=== PATIENT | male | born 1945 | race Caucasian/White ===

== ENCOUNTER 2016-08-08 21:16 | Inpatient (IN) | payer MEDICARE, BC ==
[2016-08-08] MEDS ORDERED: Sodium Chloride 0.9% 10 ML Syringe FLUSH PRN (21:42)
[2016-08-08] MEDS ORDERED: Morphine 2 MG/ML Syringe IVPUSH ONE (21:52)
[2016-08-08] MEDS ORDERED: Ondansetron 4 MG/2 ML SDV IVPUSH ONE (21:52)
[2016-08-08] MEDS ORDERED: Sodium Chloride 0.9% 1,000 ML IV SCH (22:15)
[2016-08-08] MEDS ORDERED: HYDROmorphone 1 MG/ML Syringe IVPUSH ONE (23:22)
[2016-08-09] MEDS ORDERED: LORazepam 2 MG/ML MDV IVPUSH ONE (00:19)
--- NOTE | 2016-08-09 00:54 | EDM.PDOC ---
ED HPI GENERAL MEDICAL PROBLEM - General Chief Complaint: Cardiovascular Problem Stated Complaint: UPPER STOMACH PAIN/PRESSURE Time Seen by Provider: 08/08/16 21:46 Source of Information: Reports: Patient, Family - History of Present Illness INITIAL COMMENTS - FREE TEXT/NARRATIVE: abdominal pain; this is a 70 year old male present to ER with , complaints of abdominal starting this morning at 0900. felt like a sharp stabbing pain in right lower quadrant which came and went, then moved up to epigastric area, this evening having constant sharp stabbing pain in upper abdomen. Came to ER because could not tolerate the pain any more. last meal stir velasquez 3 hours prior to ER visit. last bm today, normal soft, denies constipation, bloody or black stools denies any nausea, vomiting or diarrhea denies any fever no other family members with similar symptoms reports hx of kidney stones, appendectomy, prostate cancer and bowel obstruction. Onset: Today Duration: Hour(s): Location: Reports: Abdomen Quality: Reports: Sharp, Stabbing Severity: Severe Improves with: Reports: None Worsens with: Reports: None Associated Symptoms: Reports: No Other Symptoms upper abdominal pain Pain Score (Numeric/FACES): 7 - Related Data Allergies Allergy/AdvReac Type Severity Reaction Status Date / Time No Known Allergies Allergy Verified 08/08/16 21:23 Home Meds: Home Meds Atenolol [Tenormin] 50 mg PO DAILY 11/01/14 [History] NIFEdipine [NIFEdipine ER] 90 mg PO DAILY 11/01/14 [History] atorvaSTATin [Lipitor] 40 mg PO BEDTIME 11/01/14 [History] Aspirin 325 mg PO DAILY 08/09/16 [History] Past Medical History HEENT History: Reports: Impaired Vision Cardiovascular History: Reports: Bypass Gastrointestinal History: Reports: Bowel Obstruction Genitourinary History: Reports: BPH Musculoskeletal History: Reports: Arthritis, Back Pain, Chronic Oncologic (Cancer) History: Reports: Prostate - Infectious Disease History Infectious Disease History: Reports: Chicken Pox, Measles, Mumps - Past Surgical History Cardiovascular Surgical History: Reports: Coronary Artery Bypass GI Surgical History: Reports: Appendectomy Male Surgical History: Reports: TURP-Transurethral Resection of Prostate Musculoskeletal Surgical History: Reports: Shoulder Surgery, Other (See Below) Other Musculoskeletal Surgeries/Procedures:: left shoulder rotator cuff Social & Family History - Tobacco Use Smoking Status *Q: Never Smoker - Caffeine Use Caffeine Use: Reports: Coffee - Alcohol Use Days Per Week of Alcohol Use: 7 Number of Drinks Per Day: 3 Total Drinks Per Week: 21 - Recreational Drug Use Recreational Drug Use: No ED ROS GENERAL - Review of Systems Review Of Systems: See Below Constitutional: Reports: Other (acute abdominal pain rates at 7 out of 10) HEENT: Reports: No Symptoms Respiratory: Reports: No Symptoms Cardiovascular: Reports: No Symptoms Endocrine: Reports: No Symptoms GI/Abdominal: Reports: Abdominal Pain, Distension : Reports: No Symptoms Musculoskeletal: Reports: No Symptoms Skin: Reports: No Symptoms Neurological: Reports: No Symptoms Psychiatric: Reports: Anxiety Hematologic/Lymphatic: Reports: No Symptoms Immunologic: Reports: No Symptoms ED EXAM, GENERAL - Physical Exam Exam: See Below Exam Limited By: No Limitations General Appearance: Alert, Anxious, Moderate Distress Eye Exam: Bilateral Eye: Normal Inspection Ears: Normal External Exam, Normal Canal, Hearing Grossly Normal, Normal TMs Ear Exam: Bilateral Ear: Auricle Normal, Canal Normal, TM normal Nose: Normal Inspection, Normal Mucosa, No Blood Throat/Mouth: Normal Inspection, Normal Lips, Normal Teeth, Normal Gums, Normal Oropharynx, Normal Voice, No Airway Compromise Head: Atraumatic, Normocephalic Neck: Normal Inspection, Supple, Non-Tender, Full Range of Motion Respiratory/Chest: No Respiratory Distress, Lungs Clear, Normal Breath Sounds, No Accessory Muscle Use, Chest Non-Tender Cardiovascular: Normal Peripheral Pulses, Regular Rate, Rhythm, No Edema, No Gallop, No Murmur GI/Abdominal: Distended (mild), Other (lower abdomen; hypoactive) (Male) Exam: Deferred Rectal (Males) Exam: Deferred Back Exam: Normal Inspection, Full Range of Motion Extremities: Normal Inspection, Normal Range of Motion, Non-Tender, No Pedal Edema, Normal Capillary Refill Neurological: Alert, Oriented, CN II-XII Intact, Normal Cognition, Normal Reflexes, No Motor/Sensory Deficits Psychiatric: Anxious (related abdominal pain , worried ) Skin Exam: Warm, Dry, Intact, Normal Color, No Rash Lymphatic: No Adenopathy Course - Vital Signs Last Recorded V/S: Last Vital Signs Temp 36.2 C 08/08/16 23:03 Pulse 70 08/09/16 00:04 Resp 17 08/09/16 00:04 BP 161/74 H 08/09/16 00:04 Pulse Ox 91 L 08/09/16 00:04 - Orders/Labs/Meds Orders: Active Orders 24 hr Category Date Time Status Cardiac Monitoring [RC] .As Directed Care 08/08/16 21:40 Active EKG Documentation Completion [RC] ASDIRECTED Care 08/08/16 21:41 Active Abdomen 1V Upright [CR] Stat Exams 08/08/16 21:41 Taken Abdomen Pelvis wo Cont [CT] Stat Exams 08/08/16 22:09 Taken Chest 1V Frontal [CR] Urgent Exams 08/08/16 21:40 Taken Sodium Chloride 0.9% [Normal Saline] 1,000 ml Med 08/08/16 22:15 Active IV ASDIRECTED Sodium Chloride 0.9% [Saline Flush] Med 08/08/16 21:42 Active 10 ml FLUSH ASDIRECTED PRN Saline Lock Insert [OM.PC] Routine Oth 08/08/16 21:42 Ordered Resuscitation Status Routine Resus Stat 08/09/16 00:30 Ordered EKG 12 Lead [EK] Urgent Ther 08/08/16 21:40 Ordered Medication Orders Sodium Chloride (Normal Saline) 1,000 mls @ 500 mls/hr IV ASDIRECTED LUKASZ Last Admin: 08/08/16 22:51 Dose: 500 mls/hr Sodium Chloride (Saline Flush) 10 ml FLUSH ASDIRECTED PRN PRN Reason: Keep Vein Open Last Admin: 08/08/16 22:24 Dose: 10 ml Labs: Laboratory Tests 08/08/16 08/08/16 08/08/16 Range/Units 21:55 21:55 21:55 WBC 8.9 (4.5-11.0) K/uL RBC 5.67 (4.30-5.90) M/uL Hgb 15.8 H (12.0-15.0) g/dL Hct 47.5 (40.0-54.0) % MCV 84 (80-98) fL MCH 28 (27-31) pg MCHC 33 (32-36) % Plt Count 145 L (150-400) K/uL Neut % (Auto) 64 (36-66) % Lymph % (Auto) 22 L (24-44) % [place] % (Auto) 11 H (2-6) % Eos % (Auto) 2 (2-4) % Baso % (Auto) 1 (0-1) % PT 12.0 (9.5-12.0) sec INR 1.13 (0.80-1.20) Sodium 136 L (140-148) mmol/L Potassium 3.4 L (3.6-5.2) mmol/L Chloride 100 (100-108) mmol/L Carbon Dioxide 25 (21-32) mmol/L Anion Gap 14.4 H (5.0-14.0) mmol/L BUN 12 (7-18) mg/dL Creatinine 0.9 (0.8-1.3) mg/dL Est Cr Clr Drug Dosing 77.46 mL/min Estimated GFR (MDRD) > 60 (>60) Glucose 163 H (74-106) mg/dL Calcium 8.8 (8.5-10.1) mg/dL Magnesium 2.0 (1.8-2.4) mg/dL Total Bilirubin 0.8 (0.2-1.0) mg/dL AST 58 H (15-37) U/L ALT 71 (12-78) U/L Alkaline Phosphatase 179 H (46-116) U/L Troponin I < 0.017 (0.000-0.056) ng/mL Total Protein 8.0 (6.4-8.2) g/dL Albumin 3.6 (3.4-5.0) g/dL Globulin 4.4 H (2.3-3.5) g/dL Albumin/Globulin Ratio 0.8 L (1.2-2.2) Amylase 22 L (25-115) U/L Lipase 176 (73-393) U/L TSH, Ultra Sensitive 7.442 H (0.358-3.740) uIU/mL Urine Color Urine Appearance Urine pH (4.5-8.0) Ur Specific [place] (1.008-1.030) Urine Protein (NEGATIVE) mg/dL Urine Glucose (UA) (NEGATIVE) mg/dL Urine Ketones (NEGATIVE) mg/dL Urine Occult Blood (NEGATIVE) Urine Nitrite (NEGAITVE) Urine Bilirubin (NEGATIVE) Urine Urobilinogen (NORMAL) mg/dL Ur Leukocyte Esterase (NEGATIVE) Urine RBC (0-5) Urine WBC (0-5) Ur Epithelial Cells Amorphous Sediment Urine Bacteria Urine Mucus 05/24/17 Range/Units 23:38 WBC (4.5-11.0) K/uL RBC (4.30-5.90) M/uL Hgb (12.0-15.0) g/dL Hct (40.0-54.0) % MCV (80-98) fL MCH (27-31) pg MCHC (32-36) % Plt Count (150-400) K/uL Neut % (Auto) (36-66) % Lymph % (Auto) (24-44) % [place] % (Auto) (2-6) % Eos % (Auto) (2-4) % Baso % (Auto) (0-1) % PT (9.5-12.0) sec INR (0.80-1.20) Sodium (140-148) mmol/L Potassium (3.6-5.2) mmol/L Chloride (100-108) mmol/L Carbon Dioxide (21-32) mmol/L Anion Gap (5.0-14.0) mmol/L BUN (7-18) mg/dL Creatinine (0.8-1.3) mg/dL Est Cr Clr Drug Dosing mL/min Estimated GFR (MDRD) (>60) Glucose (74-106) mg/dL Calcium (8.5-10.1) mg/dL Magnesium (1.8-2.4) mg/dL Total Bilirubin (0.2-1.0) mg/dL AST (15-37) U/L ALT (12-78) U/L Alkaline Phosphatase (46-116) U/L Troponin I (0.000-0.056) ng/mL Total Protein (6.4-8.2) g/dL Albumin (3.4-5.0) g/dL Globulin (2.3-3.5) g/dL Albumin/Globulin Ratio (1.2-2.2) Amylase (25-115) U/L Lipase (73-393) U/L TSH, Ultra Sensitive (0.358-3.740) uIU/mL Urine Color Yellow Urine Appearance Clear Urine pH 6.0 (4.5-8.0) Ur Specific [place] 1.015 (1.008-1.030) Urine Protein Negative (NEGATIVE) mg/dL Urine Glucose (UA) Normal (NEGATIVE) mg/dL Urine Ketones Negative (NEGATIVE) mg/dL Urine Occult Blood Negative (NEGATIVE) Urine Nitrite Negative (NEGAITVE) Urine Bilirubin Negative (NEGATIVE) Urine Urobilinogen Normal (NORMAL) mg/dL Ur Leukocyte Esterase Negative (NEGATIVE) Urine RBC Not seen (0-5) Urine WBC 0-5 (0-5) Ur Epithelial Cells Not seen Amorphous Sediment Not seen Urine Bacteria Not seen Urine Mucus Not seen Meds: Medications Generic Name Dose Route Start Last Admin Trade Name Uriah PRN Reason Stop Dose Admin Sodium Chloride 1,000 mls @ 500 mls/hr 08/08/16 22:15 08/08/16 22:51 Normal Saline IV 500 mls/hr ASDIRECTED LUKASZ Administration Sodium Chloride 10 ml 08/08/16 21:42 08/08/16 22:24 Saline Flush FLUSH 10 ml ASDIRECTED PRN Administration Keep Vein Open Discontinued Medications Generic Name Dose Route Start Last Admin Trade Name Uriah PRN Reason Stop Dose Admin Hydromorphone HCl 1 mg 08/08/16 23:22 08/08/16 23:45 Dilaudid IVPUSH 08/08/16 23:23 1 mg ONETIME ONE Administration Lorazepam 1 mg 08/09/16 00:19 08/09/16 00:44 Ativan IVPUSH 08/09/16 00:20 1 mg ONETIME ONE Administration Morphine Sulfate 2 mg 08/08/16 21:52 08/08/16 22:19 Morphine IVPUSH 08/08/16 21:53 2 mg ONETIME ONE Administration Ondansetron HCl 4 mg 08/08/16 21:52 08/08/16 22:18 Zofran IVPUSH 08/08/16 21:53 4 mg ONETIME ONE Administration - Radiology Interpretation Free Text/Narrative:: abdomen pelvis CT show 7cm ill-define mass vs fatty liver recommends liver ultrasound or MRI labs; TSH elevated IV fluids medicated for pain and anxiety Departure - Departure Time of Disposition: 01:06 Disposition: Admitted As Inpatient 67 Condition: good Clinical Impression: Abdominal pain Forms: ED Department Discharge - My Orders Last 24 Hours: My Active Orders 08/08/16 21:40 Cardiac Monitoring [RC] .As Directed Chest 1V Frontal [CR] Urgent EKG 12 Lead [EK] Urgent 08/08/16 21:41 EKG Documentation Completion [RC] ASDIRECTED Abdomen 1V Upright [CR] Stat 08/08/16 21:42 Sodium Chloride 0.9% [Saline Flush] 10 ml FLUSH ASDIRECTED PRN Saline Lock Insert [OM.PC] Routine 08/08/16 22:09 Abdomen Pelvis wo Cont [CT] Stat 08/08/16 22:15 Sodium Chloride 0.9% [Normal Saline] 1,000 ml IV ASDIRECTED 08/09/16 00:30 Resuscitation Status Routine - Assessment/Plan Last 24 Hours: My Active Orders 08/08/16 21:40 Cardiac Monitoring [RC] .As Directed Chest 1V Frontal [CR] Urgent EKG 12 Lead [EK] Urgent 08/08/16 21:41 EKG Documentation Completion [RC] ASDIRECTED Abdomen 1V Upright [CR] Stat 08/08/16 21:42 Sodium Chloride 0.9% [Saline Flush] 10 ml FLUSH ASDIRECTED PRN Saline Lock Insert [OM.PC] Routine 08/08/16 22:09 Abdomen Pelvis wo Cont [CT] Stat 08/08/16 22:15 Sodium Chloride 0.9% [Normal Saline] 1,000 ml IV ASDIRECTED 08/09/16 00:30 Resuscitation Status Routine
[2016-08-09] MEDS ORDERED: Ondansetron 4 MG/2 ML SDV IV PRN (01:38)
[2016-08-09] MEDS ORDERED: Albuterol 0.083% 2.5 MG/3 ML Neb Soln NEB PRN (01:38)
[2016-08-09] MEDS ORDERED: Pantoprazole 40 MG Vial IV SCH (01:38)
[2016-08-09] MEDS ORDERED: Zolpidem 5 MG Tab PO PRN (01:38)
[2016-08-09] MEDS ORDERED: Naloxone 0.4 MG/ML SDV IVPUSH PRN (01:38)
[2016-08-09] MEDS ORDERED: LORazepam 2 MG/ML MDV IV PRN (01:38)
--- NOTE | 2016-08-09 01:41 | PCM.HP ---
H&P History of Present Illness - General Date of Service: 08/08/16 Admit Problem/Dx: Admission Diagnosis/Problem Admission Diagnosis/Problem Abdominal pain Source of Information: Patient History Limitations: Reports: No Limitations - History of Present Illness Initial Comments - Free Text/Narative: INITIAL COMMENTS - FREE TEXT/NARRATIVE: abdominal pain; this is a 70 year old male present to ER with , complaints of abdominal starting this morning at 0900. felt like a sharp stabbing pain in right lower quadrant which came and went, then moved up to epigastric area, this evening having constant sharp stabbing pain in upper abdomen. Came to ER because could not tolerate the pain any more. last meal stir velasquez 3 hours prior to ER visit. last bm today, normal soft, denies constipation, bloody or black stools denies any nausea, vomiting or diarrhea denies any fever no other family members with similar symptoms reports hx of kidney stones, appendectomy, prostate cancer and bowel obstruction. CT abdomen pelvis; 7 cm mass vs fatty infiltrate of liver labs; WBC, HBG negative, Blood Glucose and TSH elevated Onset of Symptoms: Reports: Sudden Duration of Symptoms: Reports: Hour(s):, Constant Location: Reports: Abdomen Quality: Reports: Sharp, Stabbing Severity: Severe Improves with: Reports: None Worsens with: Reports: None Associated Symptoms: Reports: No Other Symptoms upper abdominal pain Pain Score (Numeric/FACES): 7 - Related Data Allergies/Adverse Reactions: Allergies Allergy/AdvReac Type Severity Reaction Status Date / Time No Known Allergies Allergy Verified 08/08/16 21:23 Home Medications: Home Meds Atenolol [Tenormin] 50 mg PO DAILY 11/01/14 [History] NIFEdipine [NIFEdipine ER] 90 mg PO DAILY 11/01/14 [History] atorvaSTATin [Lipitor] 40 mg PO BEDTIME 11/01/14 [History] Aspirin 325 mg PO DAILY 08/09/16 [History] Past Medical History HEENT History: Reports: Impaired Vision Cardiovascular History: Reports: Bypass Gastrointestinal History: Reports: Bowel Obstruction Genitourinary History: Reports: BPH Musculoskeletal History: Reports: Arthritis, Back Pain, Chronic Oncologic (Cancer) History: Reports: Prostate - Infectious Disease History Infectious Disease History: Reports: Chicken Pox, Measles, Mumps - Past Surgical History Cardiovascular Surgical History: Reports: Coronary Artery Bypass GI Surgical History: Reports: Appendectomy Male Surgical History: Reports: TURP-Transurethral Resection of Prostate Musculoskeletal Surgical History: Reports: Shoulder Surgery, Other (See Below) Other Musculoskeletal Surgeries/Procedures:: left shoulder rotator cuff Social & Family History - Tobacco Use Smoking Status *Q: Never Smoker - Caffeine Use Caffeine Use: Reports: Coffee - Alcohol Use Days Per Week of Alcohol Use: 7 Number of Drinks Per Day: 3 Total Drinks Per Week: 21 - Recreational Drug Use Recreational Drug Use: No H&P Review of Systems - Review of Systems: Review Of Systems: See Below General: Reports: Other (abdominal pain rates 7 out of 10) HEENT: Reports: No Symptoms Pulmonary: Reports: No Symptoms Cardiovascular: Reports: No Symptoms Gastrointestinal: Reports: Abdominal Pain, Distension Genitourinary: Reports: No Symptoms Musculoskeletal: Reports: Back Pain (chronic back pain) Skin: Reports: No Symptoms Psychiatric: Reports: No Symptoms Neurological: Reports: No Symptoms Hematologic/Lymphatic: Reports: No Symptoms Immunologic: Reports: No Symptoms Exam - Exam Exam: See Below - Vital Signs Vital Signs: Last Vital Signs Temp 36.5 C 08/09/16 01:33 Pulse 63 08/09/16 01:33 Resp 14 08/09/16 01:33 BP 158/77 H 08/09/16 01:33 Pulse Ox 97 08/09/16 01:33 Weight: 99.79 kg - Exam General: Alert, Oriented, Cooperative, Severe Distress HEENT: PERRLA, Conjunctiva Clear, EACs Clear, EOMI, Hearing Intact, Mucosa Moist & [place], Nares Patent, Normal Nasal Septum, Posterior Pharynx Clear, Pupils Equal, Pupils Reactive, TMs Clear Neck: Supple, Trachea Midline, 2 Lungs: Clear to Auscultation, Normal Respiratory Effort Cardiovascular: Regular Rate, Regular Rhythm Abdomen: Distention, Tenderness (generalized, increased epigastic area ) (Male) Exam: No Hernia Rectal (Males) Exam: Deferred Back Exam: Normal Inspection, Full Range of Motion, NT Extremities: 3, Normal Inspection, 10 Skin: Warm, Dry, Intact Neurological: Cranial Nerves Intact, Reflexes Equal Bilateral Neuro Extensive - Mental Status: Alert, Oriented x3, Normal Mood/Affect, Normal Cognition Neuro Extensive - Motor, Sensory, Reflexes: CN II-XII Intact, Normal Gait, Normal Reflexes Psychiatric: Alert, Normal Affect, Anxious - Patient Data Result Diagrams: 08/08/16 21:55 08/08/16 21:55 *Q Meaningful Use (ADM) - VTE *Q VTE Criteria *Q: - Stroke *Q Stroke Criteria *Q: - AMI *Q AMI Criteria *Q: - Problem List (1) Elevated TSH SNOMED Code(s): 242423432, 300965969 ICD Code: R94.6 - ABNORMAL RESULTS OF THYROID FUNCTION STUDIES Status: Acute Priority: Medium Current Visit: Yes (2) Abdominal pain SNOMED Code(s): 37113033 ICD Code: R10.9 - UNSPECIFIED ABDOMINAL PAIN Status: Acute Priority: High Current Visit: Yes Qualifiers: Abdominal location: epigastric Qualified Code(s): R10.13 - Epigastric pain (3) Cardiovascular disease Status: Acute Priority: High Current Visit: Yes Problem List Initiated/Reviewed/Updated: Yes Orders Last 24hrs: Active Orders 24 hr Category Date Time Status Communication Order [RC] STAT Care 08/09/16 01:38 Active Intake and Output [RC] QSHIFT Care 08/09/16 01:38 Active Notify Provider Vital Signs [RC] ASDIRECTED Care 08/09/16 01:38 Active Notify Provider [RC] PRN Care 08/09/16 01:38 Active Oxygen Therapy [RC] PRN Care 08/09/16 01:38 Active SUPERVISOR [employer] Record [RC] PER UNIT ROUTINE Care 08/09/16 01:38 Active Pulse Oximetry [RC] CONTINUOUS Care 08/09/16 01:38 Active RT Aerosol Therapy [RC] ASDIRECTED Care 08/09/16 01:38 Active Up ad Evelyn [RC] ASDIRECTED Care 08/09/16 01:38 Active VTE/DVT Education [RC] Per Unit Routine Care 08/09/16 01:38 Active Vital Signs [RC] Q4H Care 08/09/16 01:38 Active Nothing per Oral After Midnight Diet [DIET] Diet 08/09/16 Breakfast Active Abdomen w Cont [MR] Stat Exams 08/09/16 01:38 Ordered BASIC METABOLIC PANEL,BMP [CHEM] AM Lab 08/09/16 05:11 Ordered CBC WITH AUTO DIFF [HEME] AM Lab 08/09/16 05:11 Ordered GLUCOSE POC LAB TO COLLECT [POC] QIDACANDBED Lab 08/09/16 07:30 Ordered GLUCOSE POC LAB TO COLLECT [POC] QIDACANDBED Lab 08/09/16 11:30 Ordered GLUCOSE POC LAB TO COLLECT [POC] QIDACANDBED Lab 08/09/16 16:30 Ordered GLUCOSE POC LAB TO COLLECT [POC] QIDACANDBED Lab 08/09/16 21:00 Ordered Albuterol [Proventil Neb Soln] Med 08/09/16 01:38 Ordered 2.5 mg NEB Q4H PRN Atenolol [Tenormin] Med 08/09/16 09:00 Ordered 50 mg PO DAILY HYDROmorphone/Normal Saline [Dilaudid [employer]PERVIS[employer] 15 MG in NS Med 08/09/16 01:38 Ordered 30 ML] See Protocol IV ASDIRECTED PRN LORazepam [Ativan] Med 08/09/16 01:38 Ordered 1 mg IV Q6H PRN NIFEdipine [Procardia XL] Med 08/09/16 09:00 Ordered 90 mg PO DAILY Naloxone [Narcan] Med 08/09/16 01:38 Ordered 0.4 mg IVPUSH Q2M PRN Ondansetron [Zofran] Med 08/09/16 01:38 Ordered 4 mg IV Q4H PRN Pantoprazole [ProTONIX IV] Med 08/09/16 01:38 Ordered 40 mg IV DAILY Sodium Chloride 0.9% [Normal Saline] 1,000 ml Med 08/09/16 01:38 Ordered IV ASDIRECTED Zolpidem [Ambien] Med 08/09/16 01:38 Ordered 5 mg PO BEDTIME PRN atorvaSTATin [Lipitor] Med 08/09/16 21:00 Ordered 40 mg PO BEDTIME Medication Discontinuation Instructions [OM.PC] Stat Oth 08/09/16 01:38 Ordered Sequential Compression Device [OM.PC] Per Unit Routine Oth 08/09/16 01:38 Ordered Resuscitation Status Routine Resus Stat 08/09/16 00:30 Ordered Medication Orders Albuterol (Proventil Neb Soln) 2.5 mg NEB Q4H PRN PRN Reason: Shortness Of Breath/wheezing Atenolol (Tenormin) 50 mg PO DAILY LUKASZ Hydromorphone HCl (Dilaudid Square Shear Operator 15 Mg In Ns 30 Ml) 0 mg IV ASDIRECTED PRN; Protocol PRN Reason: Pain Sodium Chloride (Normal Saline) 1,000 mls @ 500 mls/hr IV ASDIRECTED LUKASZ Last Admin: 08/08/16 22:51 Dose: 500 mls/hr Sodium Chloride (Normal Saline) 1,000 mls @ 125 mls/hr IV ASDIRECTED LUKASZ Lorazepam (Ativan) 1 mg IV Q6H PRN PRN Reason: Nausea/Vomiting Naloxone HCl (Narcan) 0.4 mg IVPUSH Q2M PRN PRN Reason: Respiratory Distress Non-Formulary Medication (Nifedipine [Procardia Xl]) 90 mg PO DAILY LUKASZ Non-Formulary Medication (Atorvastatin [Lipitor]) 40 mg PO BEDTIME LUKASZ Ondansetron HCl (Zofran) 4 mg IV Q4H PRN PRN Reason: Nausea/Vomiting Pantoprazole Sodium (Protonix Iv) 40 mg IV DAILY LUKASZ Sodium Chloride (Saline Flush) 10 ml FLUSH ASDIRECTED PRN PRN Reason: Keep Vein Open Last Admin: 08/08/16 22:24 Dose: 10 ml Zolpidem Tartrate (Ambien) 5 mg PO BEDTIME PRN PRN Reason: Sleep Assessment/Plan Comment:: ASSESSMENT AND PLAN abdominal pain; this is a 70 year old male present to ER with , complaints of abdominal starting this morning at 0900. felt like a sharp stabbing pain in right lower quadrant which came and went, then moved up to epigastric area, this evening having constant sharp stabbing pain in upper abdomen. Came to ER because could not tolerate the pain any more. last meal stir velasquez 3 hours prior to ER visit. last bm today, normal soft, denies constipation, bloody or black stools denies any nausea, vomiting or diarrhea denies any fever no other family members with similar symptoms reports hx of kidney stones, appendectomy, prostate cancer and bowel obstruction. CT abdomen pelvis; 7 cm mass vs fatty infiltrate of liver labs; WBC, HBG negative, Blood Glucose and TSH elevated Plan -Admit to [address] [place] [address] for further monitoring -IV fluids for rehydration NS at 125 mL per hour -Dilaudid SUPERVISOR [employer] for pain control -Advise to notify nurses of any abdominal pain or other symptoms -Order for MRI abdomen in a.m. to further evaluate liver mass vs fatty liver -And a.m. labs: CBC, BMP Maintenance issues -Orders home meds: order to be given -Nutrition: NPO til MRI then regular -Sesay catheter not indicated at this time -DVT: SCD CODE STATUS: Full Admission status: Admit to [address] [place] [address] Admission justification. This patient will be admitted for inpatient services and is medically appropriate meeting medical necessity for inpatient admission as outlined in my documentation. I reasonably expect the patient will require inpatient services that span. Time over 2 midnights. I reasonably expect this patient to be discharged or transferred within 96 hours after admission to the [facility]. Disposition;home Primary care provider:
[2016-08-09] MEDS: HYDROmorphone/Normal Saline 15 MG/30 ML PCA IV PRN (02:05)
[2016-08-09] MEDS: Sodium Chloride 0.9% 1,000 ML IV SCH ×3 (02:17→21:20)
[2016-08-09] MEDS: NIFEdipine 30 MG Tab.ER PO SCH (08:33)
[2016-08-09] MEDS: Atenolol 50 MG Tab PO SCH (08:33)
--- NOTE | 2016-08-09 09:06 | CR ---
No dilated loops of large or small bowel.
--- NOTE | 2016-08-09 09:12 | CR ---
Mild cardiomegaly. Sternotomy. No focal consolidation. Pulmonary vasculature within normal limits.
[2016-08-09] MEDS ORDERED: Gadoteridol 279.3 MG/ML 20 ML SDV IV SCH (12:00)
--- NOTE | 2016-08-09 13:16 | MR ---
MR abdomen with and without contrast Indication: Fatty infiltration versus mass. Findings: There is a large mass again noted superior to the gallbladder predominantly within the med ial segment left lobe of the liver. Some involvement within the inferior aspect of the lateral segme nt of the left lobe of the liver just lateral to the falciform ligament is possible. Mass measures 5 .5 cm AP x 7.5 cm transverse. It demonstrates mild hyperintensity on T2 images. It has low T1 signal . On arterial phase it demonstrates peripheral enhancement. There does appear to be filling of the m ass but does appear incomplete especially inferiorly. The liver capsule is contracted in this locati on of the mass. There are multiple high T2 signal foci throughout the liver. Some are too small to c haracterize. Many do not enhance and are consistent with cysts. Adrenal glands are within normal [place] its. Renal cysts are evident. Pancreas where visualized is within normal limits. Within the superior aspect of the gallbladder there is a 6 mm nodular density which may indicate a polyp or stone. Herbert mmend ultrasound follow-up to better visualize. It is not well-visualized on contrast enhanced image s. Impression: 1. High T2 signal mass with peripheral contrast enhancement and liver capsular contraction. Findings are indeterminant. Findings may indicate a primary neoplasm, metastatic disease or giant hemangioma . 2. Nodule within the superior aspect of the gallbladder is incompletely visualized. This could poten tially indicate a stone or polyp. Artifact may contribute. Recommend ultrasound follow-up.
--- NOTE | 2016-08-09 13:49 | PCM.PN ---
- General Info Date of Service: 08/09/16 Functional Status: Reports: pain controlled, urinating - Review of Systems General: Denies: Fever Gastrointestinal: Reports: Abdominal pain. Denies: Diarrhea, Nausea Systems Review Comment:: No acute events since admission. Pain has been helped by the IV hydromorphone but he still has a fair amount of epigastric and right upper quadrant pain. Pain is worse when he is moving and holding his breath. No nausea or vomiting. No diarrhea. He has not had any fevers. MRI of the abdomen revealed a sclerotic appearing mass in the liver with differential including partially sclerosed hemangioma versus hepatocellular carcinoma versus cholangiocarcinoma. He also has mild pericholecystic fluid. Possible gallstone also noted. - Patient Data Vitals - most recent: Last Vital Signs Temp 36.1 C 08/09/16 10:57 Pulse 62 08/09/16 10:57 Resp 16 08/09/16 10:57 BP 147/73 H 08/09/16 10:57 Pulse Ox 93 L 08/09/16 12:58 Weight - most recent: 98.747 kg I&O - last 24 hours: Intake & Output 08/08/16 08/09/16 08/09/16 22:59 06:59 14:59 Intake Total 522 Balance 522 Lab Results last 24 hrs: Laboratory Results - last 24 hr 08/09/16 08/09/16 Range/Units 05:11 05:11 WBC 7.7 (4.5-11.0) K/uL RBC 5.20 (4.30-5.90) M/uL Hgb 14.6 (12.0-15.0) g/dL Hct 44.1 (40.0-54.0) % MCV 85 (80-98) fL MCH 28 (27-31) pg MCHC 33 (32-36) % Plt Count 119 L (150-400) K/uL Neut % (Auto) 63 (36-66) % Lymph % (Auto) 22 L (24-44) % [place] % (Auto) 12 H (2-6) % Eos % (Auto) 3 (2-4) % Baso % (Auto) 1 (0-1) % Sodium 139 L (140-148) mmol/L Potassium 3.9 (3.6-5.2) mmol/L Chloride 104 (100-108) mmol/L Carbon Dioxide 27 (21-32) mmol/L Anion Gap 11.9 (5.0-14.0) mmol/L BUN 9 (7-18) mg/dL Creatinine 0.8 (0.8-1.3) mg/dL Est Cr Clr Drug Dosing 87.15 mL/min Estimated GFR (MDRD) > 60 (>60) Glucose 123 H (74-106) mg/dL Calcium 8.0 L (8.5-10.1) mg/dL Med Orders - Current: Current Medications Albuterol (Proventil Neb Soln) 2.5 mg NEB Q4H PRN PRN Reason: Shortness Of Breath/wheezing Atenolol (Tenormin) 50 mg PO DAILY [facility] Last Admin: 08/09/16 08:33 Dose: 50 mg Atorvastatin Calcium (Lipitor) 40 mg PO BEDTIME [facility] Hydromorphone HCl (Dilaudid Electric Switch Tester 15 Mg In Ns 30 Ml) 0 mg IV ASDIRECTED PRN; Protocol PRN Reason: Pain Last Admin: 08/09/16 02:05 Dose: 15 mg Sodium Chloride (Normal Saline) 1,000 mls @ 75 mls/hr IV ASDIRECTED [facility] Lorazepam (Ativan) 1 mg IV Q6H PRN PRN Reason: Nausea/Vomiting Naloxone HCl (Narcan) 0.4 mg IVPUSH Q2M PRN PRN Reason: Respiratory Distress Nifedipine (Procardia Xl) 90 mg PO DAILY [facility] Last Admin: 08/09/16 08:33 Dose: 90 mg Ondansetron HCl (Zofran) 4 mg IV Q4H PRN PRN Reason: Nausea/Vomiting Pantoprazole Sodium (Protonix Iv) 40 mg IV DAILY@1630 [facility] Sodium Chloride (Saline Flush) 10 ml FLUSH ASDIRECTED PRN PRN Reason: Keep Vein Open Last Admin: 08/08/16 22:24 Dose: 10 ml Zolpidem Tartrate (Ambien) 5 mg PO BEDTIME PRN PRN Reason: Sleep Discontinued Medications Gadoteridol (Prohance) 20 ml IV . DIRECTED [facility] Stop: 08/09/16 12:01 Last Admin: 08/09/16 12:07 Dose: 20 ml Hydromorphone HCl (Dilaudid) 1 mg IVPUSH ONETIME ONE Stop: 08/08/16 23:23 Last Admin: 08/08/16 23:45 Dose: 1 mg Sodium Chloride (Normal Saline) 1,000 mls @ 500 mls/hr IV ASDIRECTED [facility] Last Admin: 08/08/16 22:51 Dose: 500 mls/hr Sodium Chloride (Normal Saline) 1,000 mls @ 125 mls/hr IV ASDIRECTED [facility] Last Admin: 08/09/16 09:30 Dose: 125 mls/hr Lorazepam (Ativan) 1 mg IVPUSH ONETIME ONE Stop: 08/09/16 00:20 Last Admin: 08/09/16 00:44 Dose: 1 mg Morphine Sulfate (Morphine) 2 mg IVPUSH ONETIME ONE Stop: 08/08/16 21:53 Last Admin: 08/08/16 22:19 Dose: 2 mg Ondansetron HCl (Zofran) 4 mg IVPUSH ONETIME ONE Stop: 08/08/16 21:53 Last Admin: 08/08/16 22:18 Dose: 4 mg Pantoprazole Sodium (Protonix Iv) 40 mg IV DAILY [facility] Last Admin: 08/09/16 02:17 Dose: 40 mg - Exam Quality Assessment: No: supplemental oxygen General: alert, oriented, cooperative, no acute distress Neck: supple Lungs: Normal respiratory effort Cardiovascular: Regular Rate, Regular Rhythm Abdomen: bowel sounds present, soft, no distension, tenderness (moderate RUQ and epigastric pain). No: rebound, guarding Extremities: no edema, no cyanosis Skin: warm, dry Psy/Mental Status: alert, normal affect - Problem List Review Problem List Initiated/Reviewed/Updated: Yes - My Orders Last 24 Hours: My Active Orders 08/09/16 13:45 Sodium Chloride 0.9% [Normal Saline] 1,000 ml IV ASDIRECTED 08/09/16 Dinner Full Liquid Diet [DIET] 08/10/16 05:00 CBC W/O DIFF,HEMOGRAM [HEME] Timed (1) COMPREHENSIVE METABOLIC PN,CMP [CHEM] Timed T4 FREE [CHEM] Timed 08/10/16 07:00 Cholescintigraphy w Pharm Int [NM] Routine 08/10/16 Breakfast NPO After Midnight [Nothing per Oral After Midnight Diet] [DIET] - Plan Plan:: ASSESSMENT AND PLAN Epigastric and RUQ pain - at this point I am most suspicious for a cholecystitis type picture with his pain description and location. Mild pericholecystic fluid noted on the MRI. He has not currently febrile and has not had fevers since admission. Anatomically the gallbladder does not look sick but I believe he would benefit from functional testing with a HIDA scan. I doubt that the liver mass as discussed below is responsible for the acute pain. -Full liquids tonight -Pain control -N.p.o. after midnight -HIDA scan in the morning -Consider surgical consultation if HIDA is abnormal Liver mass - 7 cm partially sclerosed mass noted in the liver near the gallbladder. Differential includes meningioma versus carcinoma. The radiologist recommended biopsy for further evaluation. Patient will need a biopsy at some point, if he has a cholecystectomy this could be an efficient time to collect the sample versus interventional radiology as an outpatient. He does not currently have B. symptoms such as weight loss, night sweats or fatigue. Coronary artery disease - no active symptoms at this time. Troponin level was normal. Vital signs have been stable. -Continue medical management Maintenance issues -Nutrition: full liquids tonight and NPO after midnight -GI: PPI -DVT: SCD Disposition; anticipate d/c home after the hospital stay Burke Cho MD
[2016-08-09] MEDS: Pantoprazole 40 MG Vial IV SCH (16:17)
[2016-08-09] MEDS: atorvaSTATin 20 MG Tab PO SCH (21:20)
[2016-08-10] MEDS: Atenolol 50 MG Tab PO SCH (11:19)
[2016-08-10] MEDS: NIFEdipine 30 MG Tab.ER PO SCH (11:20)
--- NOTE | 2016-08-10 11:34 | NM ---
HIDA scan. Technique: 5.18 mCi technetium Choletec administered. 1.97 mcg CCK administered. Findings: Prompt liver uptake. Gallbladder uptake at 10 minutes. Gallbladder ejection fraction 24.7% . Normal is 35% or greater. Impression: 1. Low gallbladder ejection fraction which can be seen in chronic cholecystitis or biliary dysfuncti on.
--- NOTE | 2016-08-10 14:42 | PCM.PN ---
- General Info Date of Service: 08/10/16 Functional Status: Reports: pain controlled, ambulating, urinating - Review of Systems General: Denies: Fever, Weakness, Fatigue, Chills HEENT: Reports: no symptoms Pulmonary: Reports: no symptoms Cardiovascular: Reports: No Symptoms Gastrointestinal: Reports: Abdominal pain, Nausea. Denies: Difficulty swallowing, Vomiting Systems Review Comment:: This patient is a 70-year-old gentleman who was admitted for further evaluation of epigastric and right upper quadrant abdominal pain. CT scan was obtained and showed evidence of liver abnormality. MRI was obtained and shows evidence of a liver mass which is indeterminate, possible malignancy versus large hemangioma. CCK stimulated HIDA Scan showed a decreased ejection fraction of 25 %, CCK stimulation did not necessarily reproduce his symptoms. He has felt mildly to moderately improved since admission, and has been able to tolerate a full liquid diet. - Patient Data Vitals - most recent: Last Vital Signs Temp 97 F 08/10/16 14:32 Pulse 59 L 08/10/16 14:32 Resp 17 08/10/16 14:32 BP 160/82 H 08/10/16 14:32 Pulse Ox 95 08/10/16 14:32 Weight - most recent: 217 lb 11.198 oz I&O - last 24 hours: Intake & Output 08/09/16 08/10/16 08/10/16 22:59 06:59 14:59 Intake Total 3109 752 1080 Output Total 600 1300 750 Balance 2509 -548 330 Lab Results last 24 hrs: Laboratory Results - last 24 hr 08/10/16 08/10/16 Range/Units 05:00 05:00 WBC 7.4 (4.5-11.0) K/uL RBC 5.33 (4.30-5.90) M/uL Hgb 14.8 (12.0-15.0) g/dL Hct 45.3 (40.0-54.0) % MCV 85 (80-98) fL MCH 28 (27-31) pg MCHC 33 (32-36) % Plt Count 107 L (150-400) K/uL Sodium 139 L (140-148) mmol/L Potassium 4.0 (3.6-5.2) mmol/L Chloride 105 (100-108) mmol/L Carbon Dioxide 26 (21-32) mmol/L Anion Gap 12.0 (5.0-14.0) mmol/L BUN 8 (7-18) mg/dL Creatinine 0.8 (0.8-1.3) mg/dL Est Cr Clr Drug Dosing 86.86 mL/min Estimated GFR (MDRD) > 60 (>60) Glucose 122 H (74-106) mg/dL Calcium 8.2 L (8.5-10.1) mg/dL Total Bilirubin 1.1 H (0.2-1.0) mg/dL AST 46 H (15-37) U/L ALT 49 (12-78) U/L Alkaline Phosphatase 129 H (46-116) U/L Total Protein 6.6 (6.4-8.2) g/dL Albumin 2.9 L (3.4-5.0) g/dL Globulin 3.7 H (2.3-3.5) g/dL Albumin/Globulin Ratio 0.8 L (1.2-2.2) Free T4 1.10 (0.76-1.46) ng/dL Med Orders - Current: Current Medications Albuterol (Proventil Neb Soln) 2.5 mg NEB Q4H PRN PRN Reason: Shortness Of Breath/wheezing Atenolol (Tenormin) 50 mg PO DAILY [facility] Last Admin: 08/10/16 11:19 Dose: 50 mg Atorvastatin Calcium (Lipitor) 40 mg PO BEDTIME [facility] Last Admin: 08/09/16 21:20 Dose: 40 mg Hydromorphone HCl (Dilaudid Support Group Manager 15 Mg In Ns 30 Ml) 0 mg IV ASDIRECTED PRN; Protocol PRN Reason: Pain Last Admin: 08/09/16 02:05 Dose: 15 mg Sodium Chloride (Normal Saline) 1,000 mls @ 75 mls/hr IV ASDIRECTED [facility] Last Admin: 08/09/16 21:20 Dose: 75 mls/hr Lorazepam (Ativan) 1 mg IV Q6H PRN PRN Reason: Nausea/Vomiting Naloxone HCl (Narcan) 0.4 mg IVPUSH Q2M PRN PRN Reason: Respiratory Distress Nifedipine (Procardia Xl) 90 mg PO DAILY [facility] Last Admin: 08/10/16 11:20 Dose: 90 mg Non-Formulary Medication (Aspirin [Aspirin]) 325 mg PO DAILY [facility] Ondansetron HCl (Zofran) 4 mg IV Q4H PRN PRN Reason: Nausea/Vomiting Pantoprazole Sodium (Protonix Iv) 40 mg IV DAILY@1630 [facility] Last Admin: 08/09/16 16:17 Dose: 40 mg Sodium Chloride (Saline Flush) 10 ml FLUSH ASDIRECTED PRN PRN Reason: Keep Vein Open Last Admin: 08/08/16 22:24 Dose: 10 ml Zolpidem Tartrate (Ambien) 5 mg PO BEDTIME PRN PRN Reason: Sleep Discontinued Medications Gadoteridol (Prohance) 20 ml IV . DIRECTED [facility] Stop: 08/09/16 12:01 Last Admin: 08/09/16 12:07 Dose: 20 ml Hydromorphone HCl (Dilaudid) 1 mg IVPUSH ONETIME ONE Stop: 08/08/16 23:23 Last Admin: 08/08/16 23:45 Dose: 1 mg Sodium Chloride (Normal Saline) 1,000 mls @ 500 mls/hr IV ASDIRECTED [facility] Last Admin: 08/08/16 22:51 Dose: 500 mls/hr Sodium Chloride (Normal Saline) 1,000 mls @ 125 mls/hr IV ASDIRECTED [facility] Last Admin: 08/09/16 09:30 Dose: 125 mls/hr Lorazepam (Ativan) 1 mg IVPUSH ONETIME ONE Stop: 08/09/16 00:20 Last Admin: 08/09/16 00:44 Dose: 1 mg Morphine Sulfate (Morphine) 2 mg IVPUSH ONETIME ONE Stop: 08/08/16 21:53 Last Admin: 08/08/16 22:19 Dose: 2 mg Ondansetron HCl (Zofran) 4 mg IVPUSH ONETIME ONE Stop: 08/08/16 21:53 Last Admin: 08/08/16 22:18 Dose: 4 mg Pantoprazole Sodium (Protonix Iv) 40 mg IV DAILY [facility] Last Admin: 08/09/16 02:17 Dose: 40 mg - Exam Quality Assessment: DVT prophylaxis General: alert, oriented, cooperative, mild distress Lungs: Clear to auscultation, Normal respiratory effort Cardiovascular: Regular Rate, Regular Rhythm, No Murmurs Abdomen: bowel sounds present, soft, no tenderness, no distension, tenderness. No: rigidity, rebound, guarding Extremities: no edema Skin: warm, dry, intact - Problem List Review Problem List Initiated/Reviewed/Updated: Yes - My Orders Last 24 Hours: My Active Orders 08/10/16 14:34 Consult to Physician [CONS] Routine 08/10/16 14:35 Notify Provider Consults [RC] ASDIRECTED 08/10/16 Lunch Full Liquid Diet [DIET] 08/11/16 05:00 CBC WITH AUTO DIFF [HEME] Timed COMPREHENSIVE METABOLIC PN,CMP [CHEM] Timed 08/11/16 09:00 Aspirin [Aspirin] 325 mg PO DAILY 08/11/16 Breakfast NPO After Midnight [Nothing per Oral After Midnight Diet] [DIET] - Plan Plan:: ASSESSMENT AND PLAN Epigastric and RUQ pain - HIDA scan was abnormal with a decreased ejection fraction, symptoms were not reproduced with CCK infusion. -Full liquids tonight -Pain control -N.p.o. after midnight -Consult Dr. Ragland for surgical opinion, probable laparoscopic cholecystectomy and liver biopsy Liver mass - 7 cm partially sclerosed mass noted in the liver near the gallbladder. Differential includes hemangioma versus malignancy. -Consult Dr. Ragland as above for possible biopsy Coronary artery disease - no active symptoms at this time. Troponin level was normal. Vital signs have been stable. -Continue medical management Maintenance issues -Nutrition: full liquids tonight and NPO after midnight -GI: PPI -DVT: SCD Disposition; anticipate d/c home after the hospital stay
[2016-08-10] MEDS: Pantoprazole 40 MG Vial IV SCH (16:41)
[2016-08-10] MEDS: atorvaSTATin 20 MG Tab PO SCH (20:21)
[2016-08-10] MEDS: Sodium Chloride 0.9% 1,000 ML IV SCH (23:50)
[2016-08-11] MEDS ORDERED: Ondansetron 4 MG/2 ML SDV ONE (07:14)
[2016-08-11] MEDS ORDERED: Midazolam 1 MG/ML 2 ML SDV ONE (07:14)
[2016-08-11] MEDS ORDERED: fentaNYL 250 MCG/5 ML SDV ONE (07:14)
[2016-08-11] MEDS ORDERED: Rocuronium 50 MG/5 ML Vial ONE (07:14)
[2016-08-11] MEDS ORDERED: Propofol 200 MG/20 ML SDV ONE (07:14)
[2016-08-11] MEDS ORDERED: Neostigmine Methylsulfate 1 MG/ML 5 ML Syringe ONE (07:14)
[2016-08-11] MEDS ORDERED: Dexamethasone 4 MG/ML SDV ONE (07:14)
[2016-08-11] MEDS: Atenolol 50 MG Tab PO SCH ×2 (07:27→08:06)
[2016-08-11] MEDS: NIFEdipine 30 MG Tab.ER PO SCH ×2 (07:27→08:06)
[2016-08-11] MEDS: Dextrose 5%-Lactated Ringers 1,000 ML IV SCH ×2 (08:06→21:13)
[2016-08-11] MEDS ORDERED: Bupivacaine 0.5%/EPINEPHrine 1:200,000 50 ML MDV ONE (08:38)
[2016-08-11] MEDS ORDERED: Non-Formulary Medication 1 Each (Aspirin [Aspirin] 325 MG) PO SCH (09:00)
[2016-08-11] MEDS ORDERED: cefOXitin 2 GM in Sodium Chloride 0.9% 50 ML IV ONE (09:00)
[2016-08-11] MEDS ORDERED: Lactated Ringers 1,000 ML ONE (10:18)
[2016-08-11] MEDS: Aspirin 325 MG Tab.EC PO SCH (10:28)
[2016-08-11] MEDS ORDERED: Naloxone 0.4 MG/ML SDV ONE (10:47)
[2016-08-11] MEDS ORDERED: Meperidine PF 100 MG/ML Syringe ONE (11:04)
[2016-08-11] MEDS ORDERED: Meperidine PF 100 MG/ML Syringe IM ONE (11:15)
[2016-08-11] MEDS ORDERED: hydrOXYzine HCl 50 MG/ML SDV IM ONE (11:15)
[2016-08-11] MEDS ORDERED: Acetaminophen/oxyCODONE 325-5 MG Tab PO PRN (12:13)
[2016-08-11] MEDS: cefOXitin 2 GM in Sodium Chloride 0.9% 50 ML IV SCH ×2 (14:43→21:36)
[2016-08-11] MEDS ORDERED: fentaNYL 25 MCG/HR Transdermal Patch TRDERM SCH (16:00)
[2016-08-11] MEDS: Cyclobenzaprine 10 MG Tab PO PRN (16:05)
[2016-08-11] MEDS: Pantoprazole 40 MG Vial IV SCH (16:11)
[2016-08-11] MEDS: HYDROmorphone/Normal Saline 15 MG/30 ML PCA IV PRN (17:19)
[2016-08-11] MEDS: atorvaSTATin 20 MG Tab PO SCH (22:41)
[2016-08-12] MEDS: cefOXitin 2 GM in Sodium Chloride 0.9% 50 ML IV SCH ×4 (03:06→21:18)
[2016-08-12] MEDS: NIFEdipine 30 MG Tab.ER PO SCH (09:06)
[2016-08-12] MEDS: Atenolol 50 MG Tab PO SCH (09:07)
[2016-08-12] MEDS: Aspirin 325 MG Tab.EC PO SCH (09:07)
[2016-08-12] MEDS: oxyCODONE 5 MG Tab PO PRN ×4 (09:12→21:18)
[2016-08-12] MEDS: Pantoprazole 40 MG Vial IV SCH (15:59)
[2016-08-12] MEDS: Dextrose 5%-Lactated Ringers 1,000 ML IV SCH (15:59)
[2016-08-12] MEDS: atorvaSTATin 20 MG Tab PO SCH (21:18)
[2016-08-13] MEDS: oxyCODONE 5 MG Tab PO PRN ×5 (01:11→19:53)
[2016-08-13] MEDS: Dextrose 5%-Lactated Ringers 1,000 ML IV SCH ×3 (02:32→15:15)
[2016-08-13] MEDS: cefOXitin 2 GM in Sodium Chloride 0.9% 50 ML IV SCH ×3 (02:35→15:10)
[2016-08-13] MEDS: NIFEdipine 30 MG Tab.ER PO SCH (08:25)
[2016-08-13] MEDS: Aspirin 325 MG Tab.EC PO SCH (08:25)
[2016-08-13] MEDS: Atenolol 50 MG Tab PO SCH (08:25)
[2016-08-13] MEDS ORDERED: Magnesium Hydroxide 400 MG/5 ML Susp 30 ML Cup PO ONE (09:00)
--- NOTE | 2016-08-13 09:20 | PN ---
DATE OF SERVICE: 08/13/2016 SUBJECTIVE: Adonis is postop day #2. He has not had a bowel movement since 08/07/2016. His pain is controlled. INEZ drain did put out 250 of a light pink drainage. He has been up ambulating. He has no other questions or concerns today. OBJECTIVE: GENERAL: Adonis Martin is a 70-year-old male. He is alert and orientated. VITAL SIGNS: TPR is 98.8, 56, 16, blood pressure 143/75. HEENT: Negative. NECK: Supple. HEART: Regular rate and rhythm. LUNGS: Clear. ABDOMEN: Dressings dry and intact. INEZ drain is draining as above. EXTREMITIES: SCDs are on, and there is no peripheral edema. 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 Date of surgery, 08/11/2016. PLAN: 1. Milk of magnesia 30 mL one time. 2. Dulcolax 10 mg 2 tabs 1 hour after milk of magnesia. 3. Dressing off. 4. May shower. 5. Plan discharge after bowel movement. Communication note was given to clinic nurses to set up Oncology consult as soon as possible. 6. We will evaluate p.r.n. or in a.m. Tati Adan PA-C /[id number]
[2016-08-13] MEDS ORDERED: Bisacodyl 5 MG Tab PO ONE (10:00)
[2016-08-13] MEDS: Cyclobenzaprine 10 MG Tab PO PRN ×2 (11:19→19:53)
[2016-08-13] MEDS ORDERED: Bisacodyl 10 MG Supp RECTAL ONE ×2 (16:00→21:00)
[2016-08-13] MEDS ORDERED: Pantoprazole 40 MG Tab.CR PO SCH (16:30)
[2016-08-13] MEDS ORDERED: Bisacodyl 10 MG Supp RECTAL SCH (21:00)
[2016-08-13] MEDS: atorvaSTATin 20 MG Tab PO SCH (21:12)
[2016-08-14] MEDS: oxyCODONE 5 MG Tab PO PRN ×2 (01:54→07:05)
[2016-08-14 07:17] VITALS: BP 160/75
[2016-08-14] MEDS ORDERED: Magnesium Hydroxide 400 MG/5 ML Susp 30 ML Cup PO ONE (08:12)
--- NOTE | 2016-08-14 09:04 | PN ---
DATE OF SERVICE: 08/12/2016 The patient has been afebrile with stable vital signs. Pain control initially out of the operating room was marginal. We did add a fentanyl patch and this seems to be controlling the pain quite a bit better. We will try switching over to oral oxycodone today with the liver disease I think we'll switch to straight oxycodone rather than Percocet to eliminate the Tylenol. Otherwise, the operative findings were discussed with the extended family, which was present today and there aware of the overall picture. He may ready for discharge home tomorrow if we are able to switch over to oral pain medicine. His labs look okay and INEZ drain is somewhat blood-tinged, but no bile present. Adonis Ragland MD /[id number]
[2016-08-14] MEDS: NIFEdipine 30 MG Tab.ER PO SCH (09:19)
[2016-08-14] MEDS: Atenolol 50 MG Tab PO SCH (09:19)
[2016-08-14] MEDS: Aspirin 325 MG Tab.EC PO SCH (09:19)
[2016-08-14] MEDS ORDERED: fentaNYL 25 MCG/HR Transdermal Patch TRDERM SCH (10:00)
[2016-08-14] MEDS ORDERED: Remove Patch*FENTANYL TRDERM SCH (16:00)
--- NOTE | 2016-08-16 15:08 | DISCH ---
FINAL DIAGNOSES: 1. 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 a. Peritoneal masses on omentum. b. Multiple probable tumor implants, falciform ligament. c. 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 Biliary dyskinesia. 3. Incisional hernia. 4. History of hypertension. 5. History of hyperlipidemia. OPERATIVE PROCEDURES: On 08/09/2016, diagnostic laparoscopy with: 1. Cholecystectomy. 2. Biopsies of metastatic implants on omentum. 3. Biopsies of probable intrahepatic metastasis, separate from primary tumor. 4. Biopsies of probable multiple metastatic implants, falciform ligament. 5. Separate Catracho-Cut needle liver biopsy, left lobe liver biopsy to evaluate the patient's baseline liver histology. 6. Incisional hernia repair. HOSPITAL COURSE: This is a 70-year-old male presenting with some ongoing abdominal pain. Initial workup included a CCK-stimulated HIDA scan, which showed a below normal ejection fraction. The CCK injection did cause some reduction in worsening of his symptoms. However, the patient was noted to have a large mass involving predominantly the quadrate lobe (hepatic segment IV). This was best seen on the MRCP. On the CT scan, no other intraabdominal primary tumor was seen. The overall picture grossly was suggestive of this being a primary hepatic tumor although the histology on the biopsies is pending as is alpha- fetoprotein level. On 08/11/2016, the patient underwent a diagnostic laparoscopy and the above findings were identified. Biopsies were obtained of the primary tumor by means of a Catracho-Cut needle biopsy, and then, the multiple other areas of probable metastatic disease biopsies as noted above. To provide some baseline histologic evaluation of his liver, a separate Catracho-Cut biopsy of left lobe liver was obtained away from the areas involved by the tumor. The cholecystectomy was completed and the patient was noted to have an incisional hernia near the periumbilical area, likely related to his previous prostatectomy incision, which was repaired laparoscopically as well. Postoperatively, the patient had no major problems. He did continue to have discomfort, which is likely related to the tumor at this point. He will be discharged home with a fentanyl patch 25 mcg per hour to 72 hours. He will have a patch replaced on the date of discharge, which is 08/14/2016, and additionally have oxycodone 10 mg p.o. q.4 hours p.r.n. pain, #50; Colace 100 mg p.o. b.i.d., #60, refill x5; and then he will be sent home with 2 doses of milk of magnesia to take as needed for constipation. Followup will be with Tati Adan on next Saturday of 08/20/2016 at 10:00 a.m. Also, we will schedule for a Medical Oncology appointment with Dr. Snyder in [place] on Saturday, at 11 a.m. We will await the pathology report to contact the patient when those become available to confirm what is the underlying picture. If this does not appear to be hepatic primary by histologic workup, we will likely obtain a PET scan hopefully prior to the oncology appointment.
--- NOTE | 2016-08-21 08:11 | OR ---
DATE OF PROCEDURE: 08/11/2016 PREOPERATIVE DIAGNOSES: 1. Biliary dyskinesia. 2. 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 POSTOPERATIVE DIAGNOSES: 1. Biliary dyskinesia. 2. 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 a. Peritoneal masses, omentum x2. b. Probable metastatic disease over surface of gallbladder. c. Multiple implants on falciform ligament. d. 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 e. dyskinesia. f. Incisional hernia. OPERATIVE PROCEDURE: Diagnostic laparoscopy with; 1. Cholecystectomy(48774). 2. Excision of probable metastatic masses involving omentum x2 (47227). 3. Biopsies of masses involving falciform ligament(15476). 4. Wedge biopsy of the liver for biopsy of probable intrahepatic metastatic tumor(53713). 5. Catracho-Cut needle liver biopsy of separate portion of the liver not grossly involved via the malignancy (80990). 6. Repair of incisional hernia (15143). ANESTHESIA: General. INDICATIONS FOR PROCEDURE: A 70-year-old male with some upper abdominal pain. He is noted to have a low normal ejection fraction with the CCK injection causing some increase in his pain. He has a baseline pain underwent imaging. Initially with CT scan which was suspicious for a mass involving the liver superior to the gallbladder. The patient subsequently had an MRCP which showed a large mass predominantly involving the quadrate lobe (segment IV) of the liver, with some traction over the surface, quite suggestive of a malignant tumor. No other obvious primary or metastatic tumor was seen on imaging. Plan is to proceed with a diagnostic laparoscopy with cholecystectomy and then, biopsies of the above masses indicated. Potential risks including bleeding, infection, injury to underlying viscera, as well as possibility of cardiopulmonary, septic, or hemorrhagic complications leading to were discussed, and the patient wishes to proceed. DETAILS OF PROCEDURE: The patient was taken to the operating room and placed in a supine position. After general endotracheal anesthesia was induced, the abdomen was prepped and draped, a transverse epigastric incision was made and peritoneal cavity entered under direct vision with Optiview trocar and inflated to 15 mmHg pressure of CO2. Following this, a 12 mm subumbilical trocar was placed over that site. The patient noted to have an incisional hernia from previous laparoscopic trocar site used for previous prostatectomy. The peritoneal involving that was subsequently excised and sent as a separate specimen. Eventually, three additional 5 mm trocars were placed across the upper abdomen and general exploration was undertaken. The patient noted to have a distended gallbladder. There was a nodule over the surface of gallbladder which suggested metastatic disease at that level. There was a large mass predominantly involving the quadrate lobe (segment IV) of the liver and there were metastatic deposits within the omentum, adjacent to that these were subsequently excised in two pieces with a total length of the involved area being 6 cm. There were also some more tiny nodules over the falciform ligament, which were also subsequently excised. The patient had at least three locations of small visible tumor present within the liver. There were distant from the primary site, i.e. the metastatic tumor probably, most like of primary site, i.e.,the quadrate lobe. No significant lymphadenopathy in the portahepaticus or elsewhere was seen and apart from the falciform ligament, there is no obvious peritoneal carcinomatosis. Given this, an incision was made to proceed with a cholecystectomy as this likewise would likely become a complicated problem with engulfment of the biliary tract by tumor likely resulting in a subsequent acute cholecystitis. Initially, multiple biopsies will be obtained from the primary tumor as well as the sites of the probable metastatic deposit and also obtained a biopsy of the left lobe of the liver area uninvolved by a tumor to get some idea in terms of baseline status of the liver per se. After the above findings were identified. Additional trocars placed. Initially, the gallbladder was retracted anteriorly and laterally, and dissection began on the gallbladder neck, continued around the gallbladder neck and cystic duct junction. Once that area was well delineated along with the cystic artery, both structures were clipped 3 times proximally and once distally, and gallbladder neck and cystic duct junction divided. The gallbladder was then dissected off the gallbladder bed and delivered through the epigastric trocar site through a specimen bag to avoid seeding of the abdominal wall by the tumor. Given the fact that the gallbladder appeared to have a nodule on the surface, suggestive of metastatic disease. At this point, the omental tissue which was more or less loosely fixed to the area of the falciform ligament as this entered the liver was mobilized upward. This was then excised into two pieces with the aggregate amount of the tumor being around 6 cm. These masses were separately sent for histologic evaluation. Catracho-Cut needle biopsies were then obtained, one from the left lobe of the liver where it was not grossly the gallbladder tumor and the second Catracho-Cut biopsy obtained from left lobe through the somewhat normal-appearing liver into the mass and this returned quite firm tissue suggestive of a satisfactory biopsy that tumor. Two additional biopsies from that location were obtained as well. Portion of falciform ligament was then excised at which contained the tiny nodules likely representing metastatic tumor at that level and a wedge biopsy from the left lobe of the liver at the site of involvement, probable metastatic disease within the liver was obtained using Harmonic scalpel and the specimen also removed. At this point, the tumor status appeared to be satisfactorily biopsied and no further problems were noted. The area of the gallbladder was drained with a 10-Faroese round Urbano-Alonzo drain taken out through the right lateral trocar site. The camera port was then brought back to the epigastrium and the trocar at the incisional hernia site was removed and using the laparoscopic suture passer several 0 Vicryl sutures were passed through the area that is closing the hernia with a transverse orientation, the remaining trocars were removed. The peritoneal cavity deflated. The fascia at the epigastric site was also closed with 0 Vicryl stitch and the skin with 4-0 Vicryl skin stitch. Dressing applied. The patient was taken to the recovery room in satisfactory condition. Adonis Ragland MD /[id number]
== END 2016-08-14 10:15 | disposition home or self-care (01) | DRG 418 ==
LOC: JP.ED 21:16 → JP.2SS 08-09 00:28
PROVIDERS: ADMIT Internal Medicine; ATTEND Hospitalist
PROC: 0WQF4ZZ Repair Abdominal Wall, Percutaneous Endoscopic Approach (ICD-10-PCS; principal; 2016-08-11)
PROC: 0FB24ZX Excision of Left Lobe Liver, Percutaneous Endoscopic Approach, Diagnostic (ICD-10-PCS; principal; 2016-08-11)
PROC: 0FT44ZZ Resection of Gallbladder, Percutaneous Endoscopic Approach (ICD-10-PCS; principal; 2016-08-11)
PROC: 0DBT4ZX (ICD-10-PCS; principal; 2016-08-11)
DX: K82.8 Other specified diseases of gallbladder (principal); C22.7 Other specified carcinomas of liver; C78.6 Secondary malignant neoplasm of retroperitoneum and peritoneum; C78.89 Secondary malignant neoplasm of other digestive organs; R94.6 Abnormal results of thyroid function studies; Z85.46 Personal history of malignant neoplasm of prostate; H54.7 Unspecified visual loss; Z95.1 Presence of aortocoronary bypass graft; N40.0 Benign prostatic hyperplasia without lower urinary tract symptoms; R10.13 Epigastric pain; K43.2 Incisional hernia without obstruction or gangrene; I25.10 Atherosclerotic heart disease of native coronary artery without angina pectoris; E78.5 Hyperlipidemia, unspecified; I10 Essential (primary) hypertension
CPT/HCPCS: 36415; 71010 ×2; 74000 ×2; 74176; 80053; 81001; 82150; 83690; 83735; 84443; 84484; 85025; 85610; 93005; 96361; 96374; 96375; 99285 ×2; J1170; J2270; J2405; J7040; J7050; 74183; 74183-26; 78227; 78227-26; 80048; 82107; 82378; 82962; 84100; 84439; 85027; 86301; 88302; 88304; 88305; 88307; 88313; 88341; 88342; 94762; A9270-GY; A9576; C9113; J0694; J1100; J2060; J2175; J2250; J2310; J2704; J3010; J3410; J7042; J7120